=== PATIENT | female | born 1960 | race Two or more races ===

== ENCOUNTER 2023-10-06 16:05 | Inpatient (IN) | payer OTHER ==
[~2023-10-06] VITALS: Ht 160 cm; Wt 76.0 kg
[2023-10-06] MEDS ORDERED: ONDANSETRON HCL 4 MG/2 ML VIAL IV ONE (20:45)
[2023-10-06] MEDS ORDERED: MORPHINE SULFATE 4 MG/ML SYR/VIAL IV ONE (20:45)
[2023-10-06 21:14] LABS: Basophils # (auto) 0.1 10 ^3/uL (0-0.2); Basophils % (auto) 0.6 % (0.0-2.0); Eosinophils # (auto) 0.2 10 ^3/uL (0-0.8); Hematocrit 44.9 % (36.0-46.0); Lymphocytes # (auto) 1.4 10 ^3/uL (0.4-5.4); Lymphocytes % (auto) 13.9 % (10.0-50.0); Mean Corpuscular Hemoglobin 29.8 pg (28.0-32.0); Mean Corpuscular Hgb Conc. 33.5 g/dL (32.0-36.0); Mean Corpuscular Volume 88.9 fL (80.0-100.0); Monocytes # (auto) 0.9 10 ^3/uL (0-1.3); Monocytes % (auto) 8.9 % (0.0-12.0); Neutrophils # (auto) 7.6 10 ^3/uL (1.6-8.6); Neutrophils % (auto) 74.6 % (37.0-80.0); Nucleated Red Blood Cells % 0.1 %; Red Blood Cells 5.05 10^6/uL (4.0-5.20); Red Cell Distribution Width 12.7 % (11.8-14.3); White Blood Cell 10.2 10^3/uL (4.4-10.8)
[2023-10-06 21:30] LABS: Alanine Aminotransferase 20 U/L (7-40); Albumin 4.8 g/dL (3.2-4.8); Alkaline Phosphatase 92 U/L (46-116); Anion Gap 5 (5-15); Aspartate Aminotransferase 27 U/L (13-40); BUN/Creatinine Ratio 13.7 (10.0-20.0); Blood Urea Nitrogen 10 mg/dL (9-23); Calcium 9.9 mg/dL (8.7-10.4); Carbon Dioxide 30 mmol/L (20-30); Chloride 105 mmol/L (98-107); Glucose 90 mg/dL (74-106); Sodium 140 mmol/L (136-145)
[2023-10-06 21:31] LABS: Bilirubin, Total 1.1 mg/dL (0.2-1.0); Total Protein 7.5 g/dL (5.7-8.2)
[2023-10-06] MEDS: HYDROcodone-ACET 5/325MG TAB PO ONE (21:55)
[2023-10-07] MEDS ORDERED: DOCUSATE SOD 100 MG CAP PO PRN
[2023-10-07] MEDS ORDERED: MORPHINE SULFATE INJ 2 MG/ml SYRG IV PRN ×2
[2023-10-07] MEDS ORDERED: ONDANSETRON HCL 4 MG/2 ML VIAL IV PRN
[2023-10-07] MEDS ORDERED: NITROGLYCERIN 0.4 MG SL TAB SL PRN
[2023-10-07] MEDS ORDERED: ACETAMINOPHEN 325 MG TAB PO PRN
[2023-10-07 05:39] LABS: Basophils # (auto) 0 10 ^3/uL (0-0.2); Basophils % (auto) 0.3 % (0.0-2.0); Eosinophils # (auto) 0.3 10 ^3/uL (0-0.8); Eosinophils % (auto) 4.1 % (0.0-7.0); Hematocrit 41.8 % (36.0-46.0); Hemoglobin 14.2 g/dL (12.2-16.2); Lymphocytes # (auto) 1.3 10 ^3/uL (0.4-5.4); Lymphocytes % (auto) 16.3 % (10.0-50.0); Mean Corpuscular Hgb Conc. 33.9 g/dL (32.0-36.0); Mean Corpuscular Volume 88.7 fL (80.0-100.0); Monocytes # (auto) 0.7 10 ^3/uL (0-1.3); Monocytes % (auto) 9.5 % (0.0-12.0); Neutrophils # (auto) 5.4 10 ^3/uL (1.6-8.6); Neutrophils % (auto) 69.8 % (37.0-80.0); Red Blood Cells 4.71 10^6/uL (4.0-5.20); Red Cell Distribution Width 12.7 % (11.8-14.3); White Blood Cell 7.7 10^3/uL (4.4-10.8)
[2023-10-07 05:58] LABS: Alanine Aminotransferase 16 U/L (7-40); Albumin 4.3 g/dL (3.2-4.8); Alkaline Phosphatase 86 U/L (46-116); Anion Gap 7 (5-15); Aspartate Aminotransferase 21 U/L (13-40); BUN/Creatinine Ratio 15.1 (10.0-20.0); Bilirubin, Total 1.1 mg/dL (0.2-1.0); Blood Urea Nitrogen 11 mg/dL (9-23); Calcium 9.3 mg/dL (8.7-10.4); Carbon Dioxide 27 mmol/L (20-30); Chloride 105 mmol/L (98-107); Glucose 99 mg/dL (74-106); Potassium 3.8 mmol/L (3.5-5.1); Sodium 139 mmol/L (136-145); Total Protein 6.9 g/dL (5.7-8.2)
[2023-10-07] MEDS: SODIUM CHLOR 0.9% PF (SALINE LOCK) 10ML VIAL/SYR IV SCH (06:00)
[2023-10-07 08:24] VITALS: PULSE 72; RESP 16; O2SAT 96
[2023-10-07] MEDS: ENOXAPARIN SOD 40 MG/0.4 ML SYRINGE SC SCH (10:51)
[2023-10-07] MEDS: HYDROcodone-ACET 5/325MG TAB PO PRN (16:28)
[2023-10-07 16:34] VITALS: BP_SYST 127; BP_SYST 131; BP_DIAS 73; BP_DIAS 80; PULSE 76; RESP 16; RESP 18; TEMP 98.1; TEMP 98.3; O2SAT 92
[2023-10-07] MEDS ORDERED: RAMI10CA38 PO (17:37)
[2023-10-07] MEDS ORDERED: AMLO1TAB23 PO (17:37)
[2023-10-07] MEDS ORDERED: CLOP75TA70 PO (17:37)
[2023-10-07] MEDS ORDERED: ATOR10TA PO (17:37)
[2023-10-07 21:00] VITALS: BP 131/80; PULSE 76; RESP 16; TEMP 98.1; O2SAT 94
[2023-10-08] VITALS (8 sets, daily range): BP systolic 109–124; BP diastolic 66–73; PULSE 69–86; RESP 16–18; TEMP 97.9–98.7; O2SAT 93–94
[2023-10-08] MEDS ORDERED: PNEUMOCOCCAL VACC POLYS 25 MCG/0.5 ML VIAL IM ONE (07:45)
[2023-10-09] VITALS (8 sets, daily range): BP systolic 101–158; BP diastolic 73–89; PULSE 51–92; RESP 17–20; TEMP 97.6–98.6; O2SAT 92–95
[2023-10-09] MEDS ORDERED: LORazepam 2MG/ML-1ML VIAL IV ONE (21:00)
[2023-10-09] MEDS: ATORVASTATIN 20 MG TAB PO SCH (22:36)
[2023-10-10] VITALS (8 sets, daily range): BP systolic 94–145; BP diastolic 51–88; PULSE 74–88; RESP 17–20; TEMP 97.5–98.2; O2SAT 92–94
[2023-10-10] MEDS: CLOPIDOGREL BISULFATE 75 MG TAB PO SCH (09:58)
[2023-10-10] MEDS: RAMIPRIL 10 MG CAP PO SCH (09:59)
[2023-10-10] MEDS: amLODIPine BESYLATE 5 MG TAB PO SCH (10:00)
[2023-10-10] MEDS: LIDOCAINE 5% TOPICAL PATCH TOP ONE (17:40)
[2023-10-11 05:00] VITALS: BP 115/71; PULSE 73; RESP 20; TEMP 98.6; O2SAT 95
[2023-10-11 08:00] VITALS: PULSE 75; PULSE 88; RESP 18; O2SAT 94
[2023-10-11 09:00] VITALS: BP 130/67; PULSE 69; RESP 16; TEMP 98.2; O2SAT 93
[2023-10-11] MEDS: LIDOCAINE 5% TOPICAL PATCH TOP SCH (10:16)
[2023-10-11 12:44] VITALS: BP 101/64; PULSE 71; RESP 16; TEMP 98.2; O2SAT 95
[2023-10-11] MEDS ORDERED: IBU600T PO (12:44)
[2023-10-11] MEDS ORDERED: HYDR-4902 PO (12:44)
[2023-10-11] MEDS ORDERED: LIDO5DIS21 TOP (12:44)
== END 2023-10-11 16:10 | disposition home or self-care (01) | DRG 347 ==
LOC: ER 16:05 → TELE 10-07 00:01 → TELE-WESTW 10-07 15:51
PROVIDERS: ADMIT Nurse Practitioner Family; ATTEND Internal Medicine Geriatric Medicine
DX: M48.55XA Collapsed vertebra, not elsewhere classified, thoracolumbar region, initial encounter for fracture (principal); S06.0XAA Concussion with loss of consciousness status unknown, initial encounter; R91.1 Solitary pulmonary nodule; I10 Essential (primary) hypertension; S00.83XA Contusion of other part of head, initial encounter; I25.10 Atherosclerotic heart disease of native coronary artery without angina pectoris; S13.4XXA Sprain of ligaments of cervical spine, initial encounter; K80.20 Calculus of gallbladder without cholecystitis without obstruction; F17.290 Nicotine dependence, other tobacco product, uncomplicated; M50.30 Other cervical disc degeneration, unspecified cervical region; W01.0XXA Fall on same level from slipping, tripping and stumbling without subsequent striking against object, initial encounter; Z88.0 Allergy status to penicillin; Z88.2 Allergy status to sulfonamides; Z79.02 Long term (current) use of antithrombotics/antiplatelets; Z86.73 Personal history of transient ischemic attack (TIA), and cerebral infarction without residual deficits; Z83.3 Family history of diabetes mellitus; Z82.5 Family history of asthma and other chronic lower respiratory diseases; Z82.49 Family history of ischemic heart disease and other diseases of the circulatory system
CPT/HCPCS: 36415; 70450; 70551; 71250; 72125; 72148; 74176; 76705; 80053; 85025; 97110; 97116; 97163; 97530; G0378